=== PATIENT | male | born 1975 | race Hispanic/Latino ===

== ENCOUNTER 2019-07-08 09:46 | Emergency (ER) | payer OTHER ==
[~2019-07-08] VITALS: Ht 172.7 cm; Wt 78.6 kg
--- NOTE | 2019-07-08 11:09 | REP ---
RIGHT FIFTH DIGIT: Four views of the 5th digit performed. There is a mildly displaced fracture of the shaft of the 5th metacarpal. I see no other evidence of acute fracture, dislocation, or intrinsic bone disease. Electronically Signed by Beni Call MD 07/08/2019 05:05 P
[2019-07-08] MEDS ORDERED: IBUP-1022 PO (11:22)
[2019-07-08 11:28] VITALS: BP 111/65
[2019-07-08] MEDS ORDERED: IBUPROFEN 600 MG TAB PO ONE (11:30)
== END 2019-07-08 11:44 | disposition home or self-care (01) ==
LOC: M ED 09:46
DX: S62.636A Displaced fracture of distal phalanx of right little finger, initial encounter for closed fracture (principal); X50.9XXA Other and unspecified overexertion or strenuous movements or postures, initial encounter; Y92.310 Basketball court as the place of occurrence of the external cause; Y93.67 Activity, basketball